=== PATIENT | female | born 1945 | race Caucasian/White ===

== ENCOUNTER 2016-08-11 17:26 | Outpatient (CLI) | payer OTHER ==
[~2016-08-11 17:26] MED LIST: ADVIL200 M1 PO; ASPIRIN EC81 MG PO; BUPROPION HCL100 MG PO; CELEBREX200 MG PO; CENTRUM SILVER PO; CITALOPRAM HYDR40 MG PO; COLACE100 MG PO; DEMEROL50 MG PO; FLOVENT HFA220 MCG INH; FUROSEMIDE20 MG PO; HYCET1 ML PO; HYDROXYZINE HCL25 MG PO; IRON325 MG PO; LIPITOR80 MG PO; METOPROLOL SUCC25 MG PO; NITROSTAT0.4 MG SL; NORCO1 TAB PO; NYSTATIN100000 M2 TOP; OMEPRAZOLE40 MG PO; POTASSIUM CHLO10 ME2 PO; PROAIR HFA IN; RANITIDINE HCL150 MG PO; TAMOXIFEN CITRA20 MG PO; TRAZODONE HCL100 MG PO; VITAMIN C500 M1 PO
== END 2016-08-11 23:00 ==
LOC: LAB SRH 17:26
DX: R41.0 Disorientation, unspecified (principal)
CPT/HCPCS: 90074; 90100; 90648; 91096; 91504; 91505; 91631; 92690; 92860; 93140; 95059; 95150

== ENCOUNTER 2016-09-27 15:33 | Outpatient (CLI) | payer OTHER ==
--- NOTE | 2016-09-27 16:16 | DIAGNOSTIC IMAGING REPORT ---
PROCEDURE: XR CHEST 2 VIEW INDICATION: BRONCHITIS TECHNIQUE: PA and lateral views. COMPARISON: Chests 10/18/2015 and 04/19/2015 FINDINGS: Normal cardiomediastinal contour and central vessels. Clear lungs. No pleural effusion or pneumothorax. IMPRESSION: 1. No acute cardiopulmonary disease.
== END 2016-09-27 23:00 ==
LOC: XR SRH 15:33
DX: J44.0 Chronic obstructive pulmonary disease with (acute) lower respiratory infection (principal)

== ENCOUNTER 2016-11-23 15:25 | Outpatient (CLI) | payer OTHER | END 2016-11-23 23:00 | disposition home or self-care (01) | LOC: LAB SRH 15:25 | DX: R41.0 Disorientation, unspecified (principal) | CPT/HCPCS: 90074; 90100; 90648; 91320; 91504; 91505; 91631; 92057; 92690; 92860; 93140; 95059; 95150 ==

== ENCOUNTER 2016-11-29 14:21 | Outpatient (CLI) | payer OTHER ==
--- NOTE | 2016-11-29 17:32 | DIAGNOSTIC IMAGING REPORT ---
PROCEDURE: MG UNILATERAL DIAG-LT W/CAD INDICATION: Left breast pain. Status post right mastectomy for right breast carcinoma. TECHNIQUE: CC, MLO and true-lateral digital views of left breast. In addition, high-resolution ultrasound of the left breast and right mastectomy finding were performed (18 MHz). COMPARISON: Comparison is made to screening mammogram study on 08/18/2015. FINDINGS: LEFT MAMMOGRAM: Computer-aided detection applied. Moderately dense parenchymal pattern with scattered dystrophic and ductal calcifications. No change. BREAST ULTRASOUND: Left ultrasound: There are minor cystic changes with minimal ductal ectasia. Right ultrasound: Status post right mastectomy with mild residual scarring. No evidence of mass or cyst. IMPRESSION: 1. Negative mammogram and negative left breast ultrasound with minor cystic changes. 2. Status post right mastectomy. Negative ultrasound of the mastectomy site. 3. Findings discussed with the patient. RESULT CODE: 2- Benign finding(s). A. A negative report should not delay biopsy if a dominant or clinically suspicious mass is present. 10-15% of cancers are not identified by x-ray. B. A negative report may reinforce clinical impression. C. Adenosis and dense breasts may obscure an underlying neoplasm. D. False positive reports average 6-10%. E.. A yearly screening mammogram is recommended. A reminder letter will be scheduled.
== END 2016-11-29 23:00 ==
LOC: MAM SRH 14:21
DX: N64.4 Mastodynia (principal); Z90.11 Acquired absence of right breast and nipple